=== PATIENT | male | born 1995 | race Caucasian/White ===

== ENCOUNTER 2022-09-30 21:55 | Emergency (ER) | payer OTHER, SELFPAY ==
[2022-09-30 21:56] VITALS: BP 116/68; PULSE 62; RESP 15; TEMP 37; O2SAT 100; BMI 26.2
--- NOTE | 2022-09-30 22:05 | RAD_ITS ---
INDICATION: INJURY EXAMINATION/TECHNIQUE: X-RAY - RIGHT XR Shoulder Min 2 Views 4 VIEWS COMPARISON: X-rays right shoulder 02/12/2014. FINDINGS: BONES: No fracture demonstrated. JOINTS: No dislocation. SOFT TISSUES: Unremarkable. RAD/Shoulder min 2 Views IMPRESSION: No evidence of fracture. Electronically Signed: Peggy Moon MD at 22:19 EDT ,
--- NOTE | 2022-09-30 23:12 | RAD_ITS ---
STUDY: X-RAY - RIGHT CLAVICLE REASON FOR EXAM: Male, 27 years old. Injury/Pain TECHNIQUE: 2 view(s) of the clavicle. COMPARISON: Right shoulder x-rays earlier.. FINDINGS: No definite fracture demonstrated. There is mild cephalad angulation of the medial clavicle but no definite fracture identified. Fracture this region is difficult to exclude radiographically. No dislocation. RAD/Clavicle IMPRESSION: Mild angulation of the medial clavicle but no definite fracture demonstrated. If there is concern for medial clavicle fracture, CT may be helpful. Electronically Signed: Peggy Moon MD at 23:33 EDT ,
--- NOTE | 2022-09-30 23:58 | EDS_ITS ---
HPI History of Present Illness HPI Narrative: Patient presents with right clavicle pain that has been constant for the last 2 weeks. Patient states he fell down some bleachers at that time. Patient states he thinks he dislocated his clavicle. Patient states he has done this in the past. Patient states his pain is worse with any movement. Patient describes his pain as dull and aching. Patient does admit to some numbness and tingling. Patient states pain radiates up into his neck. Patient denies any weakness. Patient denies any other injuries. Chief Complaint: Upper Extremity Injury Informant: patient Occured/Mechanism Mechanism/Context: Yes fall Onset/Context/Timing Onset: Weeks (2) Timing: Continuous Quality of Pain: Dull Location: Right clavicle Worsened by: Movement Relieved by: Nothing Associated Symptoms Associated Symptoms: Positive for Parasthesia; Negative for Weakness or Loss of Funtion PFSH PFSH Medical History no medical history Home Medications NK 09/30/22 [History Last Taken Unknown] Allergy/AdvReac Type Severity Reaction Status Date / Time acetaminophen [From Vicodin] AdvReac Nausea Verified 09/30/22 21:59 hydrocodone [From Vicodin] AdvReac Nausea Verified 09/30/22 21:59 Surgical History no surgical history Social History Smoking Status: Never smoker ROS ROS ED Constitutional Constitutional ED: Denies chills or fever(s) Eyes Eyes: Denies blurry vision or change in vision ENT ENT ED: Denies rhinorrhea or sore throat Cardiovascular Cardiovascular: Denies chest pain or palpitations Respiratory/Chest Respiratory/Chest: Denies cough or dyspnea Gastrointestinal Gastrointestinal: Denies nausea or vomiting Genitourinary Genitourinary ED: Denies dysuria or hematuria Musculoskeletal Musculoskeletal: Reports neck pain; Denies back pain Integumentary Denies abscess or rash Neurologic Neurologic: Denies headache(s) or weakness Allergic/Immunologic Allergic/Immunologic ED: Denies mouth swelling or urticaria EXAM Physical Exam Const Vital Signs: 09/30/22 21:56 Temperature 98.6 F Temperature Source Temporal Pulse Rate 62 Respiratory Rate 15 Blood Pressure 116/68 Blood Pressure Mean 84 Pulse Ox 100 Oxygen Delivery Method Room Air Positive well nourished and well developed General Appearance ED: well developed and NAD HEENT Reports moist mucous membranes Extremity Extremity Narrative: There is tenderness to palpation over the medial clavicle. There is no edema or ecchymosis. There is no deformity noted. Range of motion of the right shoulder was limited in all motion secondary to pain. Strength is 5/5 bilaterally in the upper extremities. Radial pulses are equal bilaterally. Sensation was intact to light touch in the radial, median, ulnar, and axillary areas. Neuro oriented x3, CN's II-XII intact bilaterally, moves all extremities, no focal motor deficits and no sensory deficits noted Sensorium / Orientation: alert Motor Exam: strength 5/5 throughout Psych mental status grossly normal MDM MDM MDM Narrative Medical decision making narrative: Differential diagnosis includes clavicle fracture and clavicle dislocation. X- rays of the right shoulder and right clavicle will be obtained to assess for fracture or dislocation. Radiography Diagnostic Testing: Clinical Impression(s) from Imaging Studies Shoulder X-Ray 09/30/22 22:05 IMPRESSION: No evidence of fracture. Electronically Signed: Peggy Moon MD at 22:19 EDT Reading Location ID and State: [email or web address] / [place] Tel , Service support , Clavicle X-Ray 09/30/22 23:12 IMPRESSION: Mild angulation of the medial clavicle but no definite fracture demonstrated. If there is concern for medial clavicle fracture, CT may be helpful. Electronically Signed: Peggy Moon MD at 23:33 EDT , X-rays of the right shoulder were obtained. There are 4 views. On my independent interpretation, there is no acute fracture or dislocation. Radiologist also interpreted the x-rays and agrees. X-rays of the right clavicle were obtained. There are 2 views. On my independent interpretation, there is no acute fracture or dislocation. Radiologist also interpreted the x- rays and agrees. Treatment and Re-Evaluation Narrative: Patient was advised of his findings. Patient was given a sling and swath. Patient was instructed to use Tylenol or ibuprofen as needed for pain. Patient was instructed to use ice to the area. Patient was instructed to follow-up with his primary care physician in 5 to 7 days. Patient understood and was agreeable with the plan. All questions were answered. Discharge Plan Triage Chief Complaint: Upper Extremity Injury ED Provider: Bill Rodriguez Dx/Rx/DC Orders Clinical Impression: Contusion of right clavicle, Fall Instructions: ED Contusion, Upper Extremity Prescriptions: No Action NK Primary Care Provider: Care Physician,No Primary Referrals: Martina Martinez MD [Med Staff - [employer] Worker] - 5-7 Days Care Physician,No Primary [Primary Care Provider] - Disposition Disposition: Home, Self Care
== END 2022-10-01 00:18 | disposition home or self-care (01) ==
PROVIDERS: Emergency Provider Emergency Medicine; Visit Provider Emergency Medicine
DX: S20.211A Contusion of right front wall of thorax, initial encounter (principal); W19.XXXA Unspecified fall, initial encounter
CPT/HCPCS: 73000; 73030; 99283

== ENCOUNTER → 2022-10-12 | Outpatient (CLI) | payer OTHER, SELFPAY ==
--- NOTE | 2022-10-12 14:44 | CT_ITS ---
INDICATION: PAIN IN RIGHT SHOULDER EXAMINATION: CT BONE - CT Upper Extremity W/O Contrast Injection TECHNIQUE: Helically acquired images were obtained of the . 2-D reformats were performed by the technologist. A radiation dose optimization technique was used for this scan. IV Contrast dosage and agent: None. COMPARISON: None. FINDINGS: SOFT TISSUES: No soft tissue swelling or gas. No radiopaque foreign body. BONES/JOINTS: No acute fracture or subluxation. Normal alignment. Preservation of the joint space. No sclerotic or destructive changes. CT/Extremity Upper without Contra IMPRESSION: No acute fracture or subluxation. Electronically Signed: Oskar Cowart MD, [facility] at 12:50 EDT ,
== END | disposition home or self-care (01) ==
LOC: CT 14:42
PROVIDERS: Referring Provider Physician Assistant; Visit Provider Physician Assistant
DX: M25.511 Pain in right shoulder (principal); S43.61XA Sprain of right sternoclavicular joint, initial encounter
CPT/HCPCS: 73200

== ENCOUNTER → 2025-02-04 | Outpatient (CLI) | payer OTHER, SELFPAY ==
--- OUTSIDE RECORDS SUMMARY | 2025-02-04 17:09 | XMS RPT_ITS | CCD ---
Author Organization [facility] Care Team Providers Care Industrial Chemistry Teacher Name Role Phone Michelle DONALDSON, Martina Hinojosa Unavailable Fast DOCiera Unavailable Rochelle Arredondo Attending Unavailable Navarro, Juan Attending Unavailable Maria ElenaRochelle Referring Unavailable Navarro, Juan Attending Unavailable Navarro, Juan Referring Unavailable DovichRadha Attending Unavailable Navarro, Juan Referring Unavailable Navarro, Juan Consulting Unavailable Navarro, Juan Attending Unavailable Vera Carcamo Attending Unavailable Care Physician, No Primary Primary Care Physicia n Unavailable Care Physician, No Primary Referring Provider Un available Rolando Shaw Attending Physician Delvis PIERCING ARTIST-CRadha Attending Physician [phone] Talya DONALDSON, Dr. Jiang Attending Physician Care Physician, No Primary Primary Care Unava ilable Care Physician, No Primary Referring Unava ilable Rolando Shaw Attending Unavailable Care Physician, No Primary Primary Care Unava ilable Care Physician, No Primary Referring Unava ilable Radha Edmondson Attending Unavailable Care Physician, No Primary Primary Care Unava ilable Apolinar Babin Attending Unavailable Radha Edmondson Referring Unavailable Care Physician, No Primary Primary Care Unava ilable Radha Edmondson Attending Unavailable Allergies Allergy Classification Reported Allergen(s) Allergy Type Date of Onset Reaction(s) Facility (6 sources) Acetaminophen Drug Allergy 3 Nausea, Unknown [facility] (6 sources) HYDROcodone Drug Allergy 3 Nausea, Unknown [facility] (1 source) Acetaminophen / HYDROcodone Drug Allergy [facility] Work Phone: Comment on above: nausea (1 source) Acetaminophen Drug Allergy 5 [facility] Repository (1 source) HYDROcodone Drug Allergy [facility] Repository Medications Current Medications Medication Drug Class(es) Dates Sig (Normalized) Sig (Original) 12 hr guaiFENesin 600 mg extended release oral tablet (1 source) Start: 06-08-2024 take 1 tablet by mouth every twelve hours, then take 1 tablet by mouth every twelve hours Guaifenesin (Mucinex) 600 mg tablet extended release 12hr Active 600 MG PO EVERY 12 HOURS June 08, 2024 12:00am methylPREDNISolone 4 mg oral tablet (3 sources) Corticosteroid Start: 01-21-2025 take 1 tablet by mouth once oseltamivir 75 mg oral capsule (1 source) Neuraminidase Inhibitor Start: 06-08-2024 take 1 capsule by mouth every twelve hours Oseltamivir (Tamiflu) 75 mg capsule Active 75 MG PO EVERY 12 HOURS 01 24June 08, 2024 12:00am tiZANidine 4 mg oral capsule (3 sources) Central alpha-2 Adrenergic Agonist Start: 01-21-2025 take 1 capsule by mouth three times daily as needed Completed/Discontinued Medications Medication Drug Class(es) Dates Sig (Normalized) Sig (Original) Sod Sulf-Pot Chloride-Mag Sulf (3 sources) Start: 04-08-2024 End: 06-08-2024 take 1.479 tablets by mouth once Sod Sulf-Pot Chloride-Mag Sulf (Sutab) 1.479-0.188- 0.225 gram tablet Discontinued 0 PO DIRECTED April 08, 2024 12:00am June 08, 2024 11:30am USE DIRECTED PER OFFICE INSTRUCTIONS Start: 04-08-2024 take 1.479 tablets b y mouth once Sod Sulf-Pot Chloride-Mag Sulf (Sutab) 1.479-0.188- 0.225 gram tablet Active 0 PO DIRECTED April 08, 2024 12:00am USE DIRECTED PER OFFICE INSTRUCTIONS Problems Active Problems Problem Classification Problem Date Documented Da te Episodic/Chronic E Codes: Fall (4 sources) Fall; Translations: [Unspecified fall, initial encounter] 10-09-2022 Episodic Gastrointestinal hemorrhage (8 sources) Rectal hemorrhage; Translations: [Hemorrhage of anus and rectum] 03-31-2024 Episodic Other bone disease and musculoskeletal deformities (2 sources) Clavicle pain; Translations: [Pain of right clavicle] 10-03-2022 Episodic Other injuries and conditions due to external causes (1 source) Contusion of clavicular area; Translations: [Other injury of unspecified body region, initial encounter] 10-09-2022 Episodic Other injuries and conditions due to external causes (3 sources) Other specified injuries of right shoulder and upper arm, initial encounter; Translations: [Contusion of right clavicle] 10-09-2022 Episodic Residual codes; unclassified (2 sources) Body mass index (BMI) 23.0-23.9, adult; Translations: [Body Mass Index between 19-24, adult] 03-31-2024 Episodic Spondylosis; intervertebral disc disorders; other back problems (4 sources) Nerve root disorder; Translations: [Radiculopathy, cervical region] Onset: 01-22-2025 01-22-2025 Episodic Sprains and strains (5 sources) Strain of neck muscle; Translations: [Strain of muscle, fascia and tendon at neck level, initial encounter] Onset: 01-22-2025 01-21-2025 Episodic Viral infection (4 sources) Disease caused by 2019-nCoV; Translations: [COVID-19] 04-19-2022 Episodic Past or Other Problems Problem Classification Problem Date Documented Da te Episodic/Chronic Unclassified (1 source) Results Test Name Value Interpretation Reference Range Facility Cerv Spine 4 or 5 Viewson Cerv Spine 4 or 5 Views [facility] [address] [place], [place] [id number] Cerv Spine 4 or 5 Views MR#: [id number] Acct: [id number] Name: SHERRY CORBETT Rep #: [id number] : 1995 M 29 From: Fermín Ames MD PCP: Care Physician,No Primary Status: DEP AMB Study: Cerv Spine 4 or 5 Views Date of Exam: 01/22/25 Exam# [id number] Ordering Dr: Radha Edmondson PIERCING ARTIST-C PROCEDURE: CERV SPINE 4 OR 5 VIEWS 01/22/2025 REASON FOR EXAM: NECK PAIN WITH RADICULOPATHY TECHNIQUE: Procedure Code: RADSPC Modality: DX Procedure: CERV SPINE 4 OR 5 VIEWS FINDINGS: No acute fracture or subluxation. Mild disc space narrowing with tiny posterior marginal osteophytosis is noted at C3-4 and C5-6. Flexion and extension views reveal no ligamentous laxity. The prevertebral soft tissues appear unremarkable. RAD/Cerv Spine 4 or 5 Views IMPRESSION: As above. Reading Location: [id number] CC: DM Edmondson; No Primary Care Physician Tier Lift Operator: Signed Normal [facility] Orthopedic Visit Reporton Orthopedic Visit Report [facility] [address] [place] [address] [address] [place] [address] OFFICE VISIT Date of Service: 01/22/25 MR#: [id number] Acct: [id number] Name: SHERRY CORBETT Rep #: [id number] : 1995 Provider: DM lopez Age/Sex: 29/M Location: [facility] Status: Signed Intake Vital Signs 01/21/25 10:30 01/22/25 13:21 Height 5 ft 5 in 5 ft 5 in Weight: 150 lb BMI 25.0 Intake Visit Reasons: CERVICAL SPINE Chief Complaint: Cervical spine pain Accompanied by: Self Is patient in pain?: Yes Pain scale (1-10): 6 Allergies acetaminophen (From Vicodin) Adverse Reaction (Verified 01/22/25 13:24) Nausea hydrocodone (From Vicodin) Adverse Reaction (Verified 01/22/25 13:24) Nausea Medications ???Medication ???Instructions ???Recorded ???Confirmed ???Type methylprednisolone 4 mg tablets in 4 mg PO PER PKG DIR 6 days #21 t abs 01/21/25 01/22/25 Rx a dose pack (Medrol ([place]wood)) tizanidine 4 mg capsule 4 mg PO TID PRN muscle spasticity 01/21/25 01/22/25 Rx #14 caps Have you fallen in the past year?: No PFSH Family History Mother No problems noted. Father No problems noted. Social History Smoking Status: Never smoker HPI CERVICAL SPINE Details: This documentation accurately reflects the service provided and the decisions made by me, Radha Edmondson, PIERCING ARTIST-C 01/22/25 1321. Part of today???s visit was documented by Reva Pearson MA, acting as scribe. SHERRY CORBETT is a 29 year old M here today for cervical spine pain with numbness tingling that radiates to the left upper extremity through ring and pinky fingers. Rates pain 6/10 today and focused at the lower part of the neck. Patient was seen yesterday in urgent care and placed on Medrol Dosepak and as needed tizanidine which she reports some symptom improvement today. MRI in past (approx 2+ years ago) and reports lower 4 discs of surgical region "slid." Multiple flares over time, yesterday pain after rolling over in bed. Reports positive increased in frequency and severity of symptoms. Patient has had cortisone injections in the past which significantly helped his symptoms, he also completed PT at that time. Patient has made lifestyle changes and avoids heavy weight lifting as that was a significant aggravator of his symptoms. Denies any prior surgeries. ROS Const All systems reviewed are unremarkable except as noted in H and other (A O x 3, no apparent distress. No recent illness.) ENT Denies dizziness Card Denies chest pain, Denies dyspnea and Denies edema Resp Denies cough, Denies dyspnea and Reports other (No recent URI) GI Reports system reviewed and no additional complaints, except as documented, Denies nausea and Denies vomiting Musc Reports as per HPI, Reports back pain (cervical), Reports limited range of motion and Reports radiating pain into limb (LUE) Neuro No dizziness and Yes other Psych Reports system reviewed and no additional complaints, except as documented Bryan/Lymph Denies easy bleeding and Denies easy bruising Ortho Exam General General: Yes no acute distress and Yes well groomed Neurologic: Yes alert and Yes oriented x3 Psychologic: Yes reasonable and appropriate Spine Neuro: No Clonus or Spurling's General: patient alert, patient awake and patient oriented x3 Speech: speech normal Gait: normal gait SPINE TESTING CERVICAL THORACIC LUMBAR Musculoskeletal Strength 0=absent - 5=normal Details: Neck and back are without deformity, external skin changes, or signs of trauma. Curvature of the thoracic, and lumbar spine are within normal limits. Positive guarding and stiff posture of cervical region. Bony features of the shoulders and hips are of equal height bilaterally. Posture is upright, gait is smooth, steady, and within normal limits. No tenderness noted on palpation of the cervical spinous processes. Spinous processes are midline. Positive tenderness with palpation over left lower cervical musculature into the left upper trap and across scapula. There is positive large trigger points present to the upper trap and subscap region which symptoms are aggravated with pressure. Full range of motion with flexion, limited with extension with increase of left posterior muscular pain into the upper trap and scapular region, limited range of motion with rotation and lateral leans bilaterally. No clonus is noted. Stitcher Feeder strength is normal bilaterally. DTRs at elbow and wrist within normal limits Reports slightly blunted sensation over medial forearm through 4th and 5th fingers compared to opposite arm Distal motor intact with brisk cap refill at 2 seconds Supplemental Info Reviewed u (more content not included)... Normal [facility] Urgent Care Visit Reporton 1 Urgent Care Visit Report [facility] [address], [address] [place] [address] OFFICE VISIT Date of Service: 01/21/25 MR#: [id number] Acct: [id number] Name: SHERRY CORBETT Rep #: [id number] : 1995 Provider: SAÚL Mari Age/Sex: 29/M Location[facility] Status: Signed Intake Vital Signs 09/30/22 21:56 01/21/25 10:30 Height 5 ft 5 in 5 ft 5 in Weight: 151 lb 8 oz BMI 25.2 BP 124/80 H Position Sitting Respiration 16 Pulse 64 Temp 98.4 F Temp Source Oral Pulse Oximetry (%) 95 Oxygen Delivery Method room air Intake Visit Reasons: NECK INJURY Chief Complaint: left side neck pain Accompanied by: Self Is patient in pain?: Yes Pain scale (1-10): 8 Allergies acetaminophen (From Vicodin) Adverse Reaction (Verified 01/21/25 10:37) Nausea hydrocodone (From Vicodin) Adverse Reaction (Verified 01/21/25 10:37) Nausea Medications ???Medication ???Instructions ???Recorded ???Confirmed ???Type methylprednisolone 4 mg tablets in 4 mg PO PER PKG DIR 6 days #21 t abs 01/21/25 01/21/25 Rx a dose pack (Medrol ([place])) tizanidine 4 mg capsule 4 mg PO TID PRN muscle spasticity 01/21/25 01/21/25 Rx #14 caps Nurse's Note: Patient here for [facility] Medical History no medical history Surgical History no surgical history Social History Smoking Status: Never smoker HPI HPI Chief Complaint: left side neck pain Details: SHERRY CORBETT, is a 29 M who presents to the office today for left side neck pain. Patient state this is a ongoing issue. Patient states the bottom 4 disc in his neck are slipped to the right. Patient has had injections in his neck in the past with the last one being 1-2 years ago. He was previously going to [place] [facility] however they no longer have a produce specialist. Patient state he work up this morning his neck cracked and he isn't able to move his neck with out pain. Patient states that he has numbness and tingling that goes down to his elbow. No loss of consciousness or syncopal/near syncopal episodes. No other associated symptoms or alleviating/aggravating factors. ROS Const Constitutional: No other (6 system ROS completed with pertinent findings in the HPI otherwise normal.) Exam Const General: cooperative and healthy appearing [facility] Head: normocephalic and atraumatic Ears: hearing grossly normal bilaterally Nose: external nose normal Face and sinus: normal facial exam and face symmetric Eyes General: appearance normal, both eyes and all related structures Pupils: PERRL Neck Neck: limited ROM Neck mass: No Skin General: no rashes or lesions noted Neuro General: patient alert Psych Appearance: grossly normal Mental Status: mental status grossly normal Office Meds ketorolac 30 mg/mL injection syringe Performing Provider: SAÚL Garcia Performing Location: [facility] Administered by: Irene Campbell MA on 01/21/25 11:06 Dose Route Admin Location Dispensed Lot Number Expiration Date Package NDC NDC Glost Tile Shader 30 mg IM Left Glute 1 mL [id number] 02/20/25 54390-408-55 [id number] leti a Coding Level of Care Code Off vis,est,level 3 Diagnoses Cervical strain, acute S16.1XXA Assessment and Plan Assessment and Plan (1) Cervical strain, acute: Status: Acute Plan: Toradol injection in the office today. Medrol Dosepak and tizanidine as prescribed today. Patient given a referral to orthopedic spine and an appointment was made for 02/04/2025. Encouraged to get plenty of rest, drink lots of clear liquids, and use Tylenol for comfort. Patient also educated on other symptomatic management techniques. To be seen in 7-10 days if no improvement; sooner if worsening of symptoms. Patient advised of potential red flags and when appropriate to report to the ED. Patient verbalized understanding and agreement with all the above. Orders: Orders Ketorolac Injection Today M54.2 - Cervicalgia Medications: New methylprednisolone (Medrol (Dawood)) 4 mg PO PER PKG DIR 21 tabs 0RF 6 days tizanidine 4 mg PO TID PRN 14 caps 0RF muscle spasticity 01/21/25 1117 Date Rolando Santana Signature: Date (if applicable) CC: Normal [facility] Absolute lymphocyte counton 03-31-2024 Lymphocytes Auto (Unsp spec) [#/Vol] Absolute lymphocyte count [phone] Th [facility] Activated partial thrombopla stin time (aPTT) in platelet poor plasma by coagulation aon 03-31-2024 aPTT Coag (PPP) [Time] Activated partial thromboplastin time (aPTT) in platelet poor plasma by coagulation a [facility] Comment on above: This test has not be en validated for monitoringunfractionated heparin therapy. For testing thatis validated for this type of therapy, please referto the Heparin Anti-Xa assay (test code 86882). For additional information, please refer tohttp://education.[employer]/faq/XWL133(This link is being provided for informational/educational purposes only.) Basophils/100 WBC Auto (Bld) on 03-31-2024 Basophils/100 WBC (Bld) Automated basophil % [facility] Blood platelet mean volumeon 03-31-2024 Platelet mean volume (Bld) [Entitic vol] Blood platelet mean volume 7.5-12.5 [facility] Cholesterol in LDL [Mass/vol ume] in Serum or Plasmaon 03-31-2024 Cholesterol in LDL [Mass/Vol] Cholesterol in LDL [Mass/volume] in Serum or Plasma [facility] Comment on above: Reference range: <10 0 Desirable range <100 mg/dL for primary prevention; <70 mg/dL for patients with CHD or diabetic patients with > or = 2 CHD risk factors. LDL-C is now calculated using the Kashif calculation, which is a validated novel method providing better accuracy than the Friedewald equation in the estimation of LDL-C. Giacomo DEVRIES et al. JASPREET. 2013;310(19): 6050-3287 (http://education.[employer]/faq/DQK777) Eosinophils/100 WBC Auto (Bl d)on 03-31-2024 Eosinophils/100 WBC (Bld) Automated eosinophil % [facility] Glomerular filtration rate ( GFR) estimation/1.73 sq m using serum, plasma, or whole bon 03-31-2024 GFR/1.73 sq M.predicted CKD-EPI (S/P/Bld) [Vol rate/Area] Glomerular filtration rate (GFR) estimation/1.73 sq m using serum, plasma, or whole b > OR = 60 [facility] Laboratory - Chemistry and C hemistry - challengeon 03-31-2024 Albumin [Mass/Vol] 5.0 g/dL 3.6-5.1 [facility] Albumin/Globulin [Mass ratio] 1.9 {ratio} 1.0-2.5 [facility] ALP [Catalytic activity/Vol] 66 U/L 36-130 [facility] Calcium [Mass/Vol] 10.0 mg/dL 8.6-10.3 [facility] Chloride [Moles/Vol] 103 mmol/L 98-110 [facility] Cholesterol [Mass/Vol] 181 mg/dL <200 [facility] Cholesterol.total/C holesterol in HDL [Mass ratio] 2.9 {ratio} <5.0 [facility] CO2 [Moles/Vol] 27 mmol/L 20-32 [facility] Globulin (S) [Mass/Vol] 2.7 g/dL 1.9-3.7 [facility] Glucose [Mass/Vol] 80 mg/dL 65-99 [facility] Comment on above: Fasting reference in terval Potassium [Moles/Vol] 4.4 mmol/L 3.5-5.3 [facility] TSH Qn 0.71 m[IU]/L 0.40-4.50 [facility] Urea nitrogen [Mass/Vol] 16 mg/dL 7-25 [facility] Laboratory - Coagulationon 1 06-01-2023 INR Coag (Bld) [Relative time] 1.1 {INR} [facility] Comment on above: Reference Range 0.9- 1.1Moderate-intensity Warfarin Therapy 2.0-3.0Higher-intensity Warfarin Therapy 3.0-4.0 PT Coag (PPP) [Time] 11.5 s 9.0-11.5 [facility] Laboratory - Hematology and Cell countson 03-31-2024 Basophils (Bld) [#/Vol] 0.039 10*3/uL 0-200 [facility] Erythrocyte distribution width (RBC) [Ratio] 11.5 % 11.0-15.0 [facility] Hematocrit (Bld) [Volume fraction] 47.4 % 38.5-50.0 [facility] MCH (RBC) [Entitic mass] 31.4 pg 27.0-33.0 [facility] MCHC (RBC) [Mass/Vol] 33.5 g/dL 32.0-36.0 [facility] Comment on above: For adults, a slight decrease in the calculated MCHCvalue (in the range of 30 to 32 g/dL) is most likelynot clinically significant; however, it should beinterpreted with caution in correlation with otherred cell parameters and the patient's clinicalcondition. Platelets (Bld) [#/Vol] 232 10*3/uL 140-400 [facility] RBC (Bld) [#/Vol] 5.07 10*6/uL 4.20-5.80 [facility] Lymphocytes bldon 03-31-2024 Lymphoblasts (Bld) [#/Vol] Lymphocytes bld [facility] MCV (mean corpuscular volume ) determinationon 03-31-2024 MCV (RBC) [Entitic vol] MCV (mean corpuscular volume) determination 80.0-100.0 [facility] Monocyte %on 03-31-2024 Monocyte % Monocyte % 15-500 [facility] Monocytes/100 WBC Auto (Bld) on 03-31-2024 Monocytes/100 WBC (Bld) Automated monocyte % [facility] Neutrophils/100 WBC Auto (Bl d)on 03-31-2024 Neutrophils/100 WBC (Bld) Automated neutrophil % [facility] No Panel Informationon 03-31 BUN/Creatinine Ratio (Send Out) SEE NOTE: (calc) 10-11 [facility] Comment on above: Not Reported: BUN an d Creatinine are within reference range. Non-HDL Cholesterol 119 mg/dL (calc) <130 [facility] Comment on above: For patients with di abetes plus 1 major ASCVD risk factor, treating to a non-HDL-C goal of <100 mg/dL (LDL-C of <70 mg/dL) is considered a therapeutic option. Protein total ser/plason Protein [Mass/Vol] Protein total ser/plas 6.1-8 .1 [facility] Sed rateon 03-31-2024 ESR (Bld) [Velocity] Sed rate < OR = 15 [facility] Serum or plasma alanine quick otransferase (ALT) measurementon 03-31-2024 ALT [Catalytic activity/Vol] Serum or plasma alanine aminotransferase (ALT) measurement 9-46 [facility] Serum or plasma free thyroxi ne (T4) measurementon 03-31-2024 Free T4 [Mass/Vol] Serum or plasma free thyroxine (T4) measurement 0.8-1.8 [facility] Serum or plasma high density lipoprotein (HDL) cholesterol measurementon 03-31-2024 Cholesterol in HDL [Mass/Vol] Serum or plasma high density lipoprotein (HDL) cholesterol measurement > OR = 40 [facility] Sodium (Bld) [Moles/Vol]on 1 06-01-2023 Sodium [Moles/Vol] Sodium, whole blood 135-146 [facility] Triglyceride (percentile)on 03-31-2024 Triglyceride [%] Triglyceride (percentile) <150 [facility] Vital Signs Date Time Vital Sign Value Performing Clinician Facility 01-22-2025 13:21-0400 Body height 165.1 cm No Primary Care Physician [facility] 01-22-2025 13:21-0400 Body mass index (BMI) [Ratio] 25 kg/m2 No Primary Care Physician [facility] 01-22-2025 13:21-0400 Body weight 68.03 kg No Primary Care Physician [facility] 01-21-2025 10:30-0400 Body height 165.1 cm No Primary Care Physician [facility] 01-21-2025 10:30-0400 Body mass index (BMI) [Ratio] 25.2 kg/m2 No Primary Care Physician [facility] 01-21-2025 10:30-0400 Body temperature 98.4 [degF] No Primary Care Physician [facility] 01-21-2025 10:30-0400 Body weight 68.71 kg No Primary Care Physician [facility] 01-21-2025 10:30-0400 Diastolic blood pressure 80 mm[Hg] No Primary Care Physician [facility] 01-21-2025 10:30-0400 Heart rate 64 /min No Primary Care Physician [facility] 01-21-2025 10:30-0400 Respiratory rate 16 /min No Primary Care Physician [facility] 01-21-2025 10:30-0400 SaO2% (BldA) [Mass fraction] 95 % No Primary Care Physician [facility] 01-21-2025 10:30-0400 Systolic blood pressure 124 mm[Hg] No Primary Care Physician [facility] 06-08-2024 11:24-0500 Body height 165.1 cm [facility] 06-08-2024 11:24-0500 Body mass index (BMI) [Ratio] 24.4 kg/m2 [facility] 06-08-2024 11:24-0500 Body temperature 98.7 [degF] [facility] 06-08-2024 11:24-0500 Body weight 66.67 kg [facility] 06-08-2024 11:24-0500 Diastolic blood pressure 58 mm[Hg] [facility] 06-08-2024 11:24-0500 Heart rate 67 /min [facility] 06-08-2024 11:24-0500 Respiratory rate 17 /min [facility] 06-08-2024 11:24-0500 SaO2% (BldA) [Mass fraction] 99 % [facility] 06-08-2024 11:24-0500 Systolic blood pressure 110 mm[Hg] [facility] 05-07-2024 10:19-0500 Diastolic blood pressure 46 mm[Hg] [facility] 05-07-2024 10:19-0500 Heart rate 51 /min [facility] 05-07-2024 10:19-0500 Respiratory rate 16 /min [facility] 05-07-2024 10:19-0500 SaO2% (BldA) [Mass fraction] 100 % [facility] 05-07-2024 10:19-0500 Systolic blood pressure 117 mm[Hg] [facility] 05-07-2024 09:49-0500 Body temperature 97 [degF] [facility] 05-07-2024 08:35-0500 Body mass index (BMI) [Ratio] 24.1 kg/m2 [facility] 05-05-2024 08:58-0500 Body height 165.1 cm [facility] 05-05-2024 08:58-0500 Body weight 65.8 kg [facility] 04-08-2024 10:29-0500 Body height 165.1 cm [facility] 04-08-2024 10:29-0500 Body mass index (BMI) [Ratio] 24.3 kg/m2 [facility] 04-08-2024 10:29-0500 Body weight 66.22 kg [facility] 04-08-2024 10:29-0500 Diastolic blood pressure 58 mm[Hg] [facility] 04-08-2024 10:29-0500 Heart rate 68 /min [facility] 04-08-2024 10:29-0500 Respiratory rate 16 /min [facility] 04-08-2024 10:29-0500 Systolic blood pressure 121 mm[Hg] [facility] 03-31-2024 10:37-0500 Body height 165.1 cm [facility] 03-31-2024 10:37-0500 Body mass index (BMI) [Ratio] 23.9 kg/m2 [facility] 03-31-2024 10:37-0500 Body temperature 98.5 [degF] [facility] 03-31-2024 10:37-0500 Body weight 65.31 kg [facility] 03-31-2024 10:37-0500 Diastolic blood pressure 70 mm[Hg] [facility] 03-31-2024 10:37-0500 Heart rate 73 /min [facility] 03-31-2024 10:37-0500 Respiratory rate 14 /min [facility] 03-31-2024 10:37-0500 SaO2% (BldA) [Mass fraction] 100 % [facility] 03-31-2024 10:37-0500 Systolic blood pressure 116 mm[Hg] [facility] 10-02-2022 11:22-0400 Body temperature 97.3 [degF] Martina Martinez MD Work Phone: [facility] Work Phone: 10-02-2022 11:22-0400 Body weight 68.95 kg Martina Martinez MD Work Phone: [facility] Work Phone: 10-02-2022 11:22-0400 Diastolic blood pressure 60 mm[Hg] Martina Martinez MD Work Phone: [facility] Work Phone: Comment on above: Patient Position: Sitting; Cuff Location : Left Arm; Cuff Size: Standard 10-02-2022 11:22-0400 Heart rate 64 /min Martina Martinez MD Work Phone: [facility] Work Phone: Comment on above: Pattern: Regular 10-02-2022 11:22-0400 SaO2% (BldA) [Mass fraction] 99 % Martina Martinez MD Work Phone: [facility] Work Phone: Comment on above: Room air 10-02-2022 11:22-0400 Systolic blood pressure 112 mm[Hg] Martina Martinez MD Work Phone: [facility] Work Phone: Comment on above: Patient Position: Sitting; Cuff Location : Left Arm; Cuff Size: Standard 09-30-2022 21:56-0400 Body height 165.1 cm [facility] 09-30-2022 21:56-0400 Body mass index (BMI) [Ratio] 26.2 kg/m2 [facility] 09-30-2022 21:56-0400 Body temperature 98.6 [degF] [facility] 09-30-2022 21:56-0400 Body weight 71.66 kg [facility] 09-30-2022 21:56-0400 Diastolic blood pressure 68 mm[Hg] [facility] 09-30-2022 21:56-0400 Heart rate 62 /min [facility] 09-30-2022 21:56-0400 Respiratory rate 15 /min [facility] 09-30-2022 21:56-0400 SaO2% (BldA) [Mass fraction] 100 % [facility] 09-30-2022 21:56-0400 Systolic blood pressure 116 mm[Hg] [facility] Encounters Encounter Date Encounter Type Care Provider Facility Start: 02-04-2025 ambulatory Radha Edmondson Facility :[facility] Start: 01-22-2025 End: 01-22-2025 Patient encounter procedure Radha Edmondson PIERCING ARTIST-C -[facility] Work Phone: Start: 01-22-2025 End: 01-22-2025 ambulatory No Primary Care Physician -[facility] Start: 01-21-2025 End: 01-21-2025 Patient encounter procedure Rolando Spears [facility] Work Phone: Start: 01-21-2025 End: 01-21-2025 ambulatory No Primary Care Physician -[facility] Start: 06-08-2024 End: 06-08-2024 Patient encounter procedure [facility] [address] Work Phone: Start: 06-08-2024 End: 06-08-2024 ambulatory Vera Carcamo Facility:[facility] Start: 05-07-2024 Non-patient / Non-visit [facility] Work Phone: Start: 05-07-2024 End: 05-07-2024 ambulatory Juan Navarro Facility:[facility] Start: 04-08-2024 End: 04-08-2024 Patient encounter procedure [facility] [address] Work Phone: Start: 04-08-2024 End: 04-08-2024 ambulatory Juan Navarro [facility] Work Phone: Start: 03-31-2024 End: 03-31-2024 Patient encounter procedure [facility] [address] Work Phone: Start: 03-31-2024 End: 03-31-2024 ambulatory Rochelle Arredondo [facility] Work Phone: Start: 10-12-2022 End: 10-12-2022 ambulatory [facility] Work Phone: Start: 10-12-2022 End: 10-12-2022 Patient encounter procedure [facility]-Cat Scan, [facility] Work Phone: Start: 10-02-2022 End: 10-03-2022 Office outpatient new 20 minutes Martina Martinez MD Work Phone: [facility] Start: 09-30-2022 End: 10-01-2022 Emergency department patient visit [facility] Work Phone: Procedures Date Procedure Procedure Detail Performing Clinician Start: 10-12-2022 CT of upper limb wit hout contrast Start: 09-30-2022 Plain X-ray of clavicle Start: 09-30-2022 Plain X-ray of shoulder Plan of Treatment Date Care Activity Detail Author Start: 01-22-2025 X-ray of cervical spine Cerv Spine 4 or 5 Views [facility] Start: 01-22-2025 XR Cervical spine 4 or 5 Views [facility] Start: 01-21-2025 Administration of analgesic [facility] Start: 05-07-2024 [facility] Start: 05-07-2024 Anesthesia care monitoring [facility] Start: 05-07-2024 Informed consent for procedure [facility] Start: 05-07-2024 [facility] Start: 03-31-2024 Patient referral [facility] Work Phone: Start: 10-02-2022 Procedure Education Eprescribed prescriptions (G8553) [facility] Work Phone: CBC W Auto Different ial panel - Blood [facility] Comprehensive metabo lic 2000 panel - Serum or Plasma [facility] Erythrocyte sedimentation rate [facility] Lipid panel [facility] MR Cervical spine [facility] Patient Education [facility] Work Phone: Patient referral [facility] Work Phone: PT and aPTT panel - Platelet poor plasma by Coagulation assay [facility] Thyroid stimulating hormone measurement [facility] Payers Date Payer Category Payer Self-pay 2025 Unknown [id number] Unknown [id number] Unknown [facility] [id number] Unknown [facility] Unknown [id number] Unknown [id number] Unknown [id number] Unknown [id number] Social History Date Type Detail Facility Start: 09-30-20[address] [facility] if ever smoked [facility] Start: 1995 Sex Assigned At Male [facility] Most Recent Primary Occupation Most Recent Primary Occupation [facility] Work Phone: Comment on above: works at [employer] in [place] Tobacco use: Tobacco use: [facility] Work Phone: Start: 03-31-2024 Never Smoker Never Smoker [facility] Start: 03-31-2024 End: 06-08-2024 Sex Male (finding) [facility] Start: 05-07-2024 Current Every Day Smoker Current Every Day Smoker [facility] Start: 05-05-2024 No History No History [facility] Start: 09-30-2022 Tobacco smoking stat us NHIS Never smoked tobacco (finding) [facility] Sex Male [facility] Evaluation note 01-21-2025 Note Date & Type Note Facility 01-21-2025 Evaluation note Diagnosis Onset Date Resolution Cervical strain, acute acute Oc tober 2024 10:30am Cervical radiculopathy acute Oc tober 2024 1:17pm [facility] [employer] [facility] [employer] Work Phone: Evaluation note 01-21-2025 Note Date & Type Note Facility 01-21-2025 Evaluation note Diagnosis Onset Date Resolution Cervical strain, acute acute January 21 10:30am [facility] Work Phone: Evaluation note 04-08-2024 Note Date & Type Note Facility 04-08-2024 Evaluation note Diagnosis Onset Date Resolution Rectal bleeding noneactive April 08, 2024 10:28am [facility] Work Phone: Evaluation note 03-31-2024 Note Date & Type Note Facility 03-31-2024 Evaluation note Diagnosis Onset Date Resolution Rectal bleeding noneactive March 31, 2024 10:29am BMI 23.0-23.9, adult noneactive Dece mber 2023 10:29am Rectal bleeding noneactive April 08, 2024 10:28am [facility] Work Phone: Evaluation note Note Date & Type Note Facility Evaluation note No assessment information availa [facility] Work Phone: Evaluation note Note Date & Type Note Facility Evaluation note Diagnosis Onset Date Resolution Rectal bleeding noneactive March 31, 2024 10:29am BMI 23.0-23.9, adult noneactive Dece mber 2023 10:29am [facility] Work Phone: Hospital Discharge instructions Note Date & Type Note Facility Hospital Discharge instructions Ambulatory OrdersComplete Blood Count Auto Diff Time Frame: 03/31/24, [facility]24, [facility]: [facility], [facility]: 03/31/24, [facility] P[facility] Time Frame: 03/31/24, Location: [facility] Surgery [facility] Location: [facility] SelectedTSH/Free T4 Time Frame: 03/31/24, Location: [facility] Work Phone: Instructions Note Date & Type Note Facility Instructions Name Patient Instructions Indication:Pain of right clavicle Start: 3 Instruction Type:Provider Instructions for Treatment How to Access Health Information Online using Patient Portal and [employer] Apps Indication:Pain of right clavicle Start: 3 Instruction Type:Patient Education [facility] Work Phone: Reason for referral (narrative) Note Date & Type Note Facility Reason for referral (narrative) No reason for referral information available [facility] Work Phone: Chief Complaint and Reason for Visit Chief Complaint RIGHT SHOULDER PAIN Pain in right shoulder Chief Complaint Admit Date New Patient - Male March 31, 2024 10:29am Reason for Visit Admit Date Rectal bleeding March 31, 2024 10:29am BMI 23.0-23.9, adult March 31, 2024 10:29am Chief Complaint Admit Date New Patient - Male March 31, 2024 10:29am Rectal Bleeding April 08, 2024 10:28am Reason for Visit Admit Date Rectal bleeding March 31, 2024 10:29am BMI 23.0-23.9, adult March 31, 2024 10:29am Rectal bleeding April 08, 2024 10:28am Chief Complaint Admit Date Rectal Bleeding April 08, 2024 10:28am Reason for Visit Admit Date Rectal bleeding April 08, 2024 10:28am Chief Complaint Admit Date Sick visit June 08, 2024 11:20am Chief Complaint Admit Date NECK INJURY January 21, 2025 10 :30am Chief Complaint Admit Date NECK INJURY January 21, 2025 10 :30am CERVICAL SPINE January 22, 2025 1: 17pm Room 5 January 22, 2025 1: 35pm Reason for Visit Admit Date Cervical strain, acute January 21, 2025 10:30am Cervical radiculopathy January 22, 2025 1:17pm Reason for Visit Admit Date Cervical strain, acute January 21, 2025 10:30am Advance Directives No Advanced Directives Records Found Advance Directive Response Recorded Date/ Time Living Will No September 30, 2022 10:52pm Power of Rn Lab No September 30 10:52pm Advance Directive Response Recorded Date/ Time Advance Directives No May 07, 2024 8:17am Family History No Family History Records Found Relationship Condition Age at Onset Recorded Date/T kirt Not Specified No family history of malignant neoplasm Unknown Summary Purpose Additional Source Comments Care Teams (unrecognized sec tion and content) Team Status: Active Member Role Status Dates Dr. Tianna Aponte MD Family Provider Active No Primary Care Physician Primary Care Provider Active Team Status: Inactive Member Role Status Dates No Primary Care Physician Primary Care Provider Active Dr. Bill Rodriguez DO Attending Provider, Emergency P duc Active Team Status: Inactive Member Role Status Dates No Primary Care Physician Primary Care Provider Active Vinh HAYS PAKristenC Attending Provider, Referring Pr ovidmonique Active Team Status: Active Member Role Status Dates Rochelle Arredondo MD Primary Care Provider Active Team Status: Inactive Member Role Status Dates Rochelle Arredondo MD Primary Care Provide r, Attending Provider Active Start: March 31, 2024 End: March 31, 2024 Team Status: Inactive Member Role Status Dates Rochelle Arredondo MD Primary Care Provide r, Referring Provider Active Start: April 08, 2024 End: April 08, 2024 Juan Navarro MD Attending Provider Active S tart: April 08, 2024 End: April 08, 2024 Team Status: Active Member Role Status Dates Rochelle Arredondo MD Primary Care Provider Active Sta rt: May 07, 2024 Juan Navarro MD Referring Provider, Other Provider Active Start: May 07, 2024 Radha Osorio MD Attending Provider Active Star t: May 07, 2024 Team Status: Inactive Member Role Status Dates Rochelle Arredondo MD Primary Care Provider Active Sta rt: June 08, 2024 End: June 08, 2024 Vera Carcamo NP Attending Provider Active Star t: June 08, 2024 End: June 08, 2024 Team Status: Active Member Role/Relationship Status Dates Dr. Tianna Aponte MD Primary care physician Active No Primary Care Physician Primary care physician Activ e Team Status: Inactive Member Role/Relationship Status Dates No Primary Care Physician Primary care physician Activ e Start: January 21, 2025 End: January 21, 2025 No Primary Care Physician Referring Provider Active Start: January 21, 2025 End: January 21, 2025 Rolando HAYS PA Attending physician Active St art: January 21, 2025 End: January 21, 2025 Team Status: Inactive Member Role/Relationship Status Dates No Primary Care Physician Primary care physician Activ e Start: January 22, 2025 End: January 22, 2025 No Primary Care Physician Referring Provider Active Start: January 22, 2025 End: January 22, 2025 DM Nava Attending physician Active Start: January 22, 2025 End: January 22, 2025 Team Status: Inactive Member Role/Relationship Status Dates No Primary Care Physician Primary care physician Activ e Start: January 22, 2025 End: January 22, 2025 Dr. Apolinar Babin MD Attending physician Active Start: January 22, 2025 End: January 22, 2025 Team Status: Active Member Role/Relationship Status Dates No Primary Care Physician Primary care physician Activ e Start: January 22, 2025 No Primary Care Physician Referring Provider Active Start: January 22, 2025 DM Nava Attending physician Active Start: January 22, 2025 Goals (unrecognized section and content) Goals may be documented in a n alternate sectionGoals may be documented in an alternate sectionGoals may be documented in an alternate sectionGoals may be documented in an alternate sectionGoals may be documented in an alternate sectionGoals may be documented in an alternate sectionGoals may be documented in an alternate sectionGoals may be documented in an alternate section (unrecognized sect ion and content) No Status Records FoundNo Status Records Found INFORMATION SOURCE (unrecogn ized section and content) DATE CREATED AUTHOR 06/09/2024 [facility] DATE CREATED AUTHOR GAMAL HAJI 02/02/2025 [facility] FOR RECORDS PERTAINING TO PATIENTS WHO ARE OR HAVE BEEN ENROLLED IN A CHEMICAL DEPENDENCY/SUBSTANCEABUSE PROGRAM, SOME INFORMATION MAY BE OMITTED. This clinical summary was aggregated from multiple sources. Caution should be exercised in using it in the provision of clinical care. This summary normalizes information from multiple sources, and as a consequence, information in this document may materially change the coding, format and clinical context of patient data. In addition, data may be omitted in some cases. CLINICAL DECISIONS SHOULD BE BASED ON THE PRIMARY CLINICAL RECORDS. [facility]. provides no warranty or guarantee of the accuracy or completeness of information in this document.
== END | disposition home or self-care (01) ==
LOC: MRI 17:04
PROVIDERS: Referring Provider Nurse Practitioner Family; Visit Provider Nurse Practitioner Family
DX: Z00.00 Encounter for general adult medical examination without abnormal findings (principal)